=== PATIENT | male | born 1970 ===

== ENCOUNTER → 2019-07-24 | Outpatient (REF) | payer BC ==
[2019-07-24 15:07] LABS: CREATININE, URINE 28.1 MG/DL; MALB URINE SIEMENS < 5.0 MG/L; MAU/CREAT RATIO 17.7 MCG/MG (0.0-30.0)
== END ==
LOC: M LAB REF 13:17
PROVIDERS: ATTEND Nurse Practitioner Family
DX: E11.65 Type 2 diabetes mellitus with hyperglycemia (principal)

== ENCOUNTER → 2021-04-27 | Outpatient (REF) | payer BC ==
[2021-04-27 18:46] LABS: CREATININE, URINE 80.1 MG/DL; MALB URINE SIEMENS < 5.0 MG/L; MAU/CREAT RATIO 6.2 MCG/MG (0.0-30.0)
== END ==
LOC: M LAB REF 17:42
PROVIDERS: ATTEND Nurse Practitioner Family
DX: E11.65 Type 2 diabetes mellitus with hyperglycemia (principal)

== ENCOUNTER → 2022-04-26 | Outpatient (REF) | payer BC ==
[2022-04-26 18:48] LABS: CREATININE, URINE 68.4 MG/DL
[2022-04-26 18:50] LABS: MALB URINE SIEMENS < 5.0 MG/DL; MAU/CREAT RATIO 7.3 MCG/MG (0.0-30.0)
== END ==
LOC: M LAB REF 17:06
PROVIDERS: ATTEND Nurse Practitioner Family
DX: E11.65 Type 2 diabetes mellitus with hyperglycemia (principal)